=== PATIENT | female | born 1960 | race Caucasian/White ===

== ENCOUNTER → 2016-10-12 | Outpatient (CLI) | payer OTHER | LOC: FIMAGING 15:02 | PROVIDERS: ATTEND Obstetrics & Gynecology | DX: Z03.89 Encounter for observation for other suspected diseases and conditions ruled out (principal) | CPT/HCPCS: G0206 ==

== ENCOUNTER → 2017-03-11 | Outpatient (CLI) | payer OTHER | LOC: FIMAGING 13:28 | PROVIDERS: ATTEND Obstetrics & Gynecology | DX: N63.20 Unspecified lump in the left breast, unspecified quadrant (principal) ==

== ENCOUNTER → 2018-07-26 | Outpatient (CLI) | payer OTHER | LOC: FIMAGING 08:28 ==

== ENCOUNTER → 2018-08-18 | Outpatient (CLI) | payer OTHER | LOC: FIMAGING 09:20 ==